=== PATIENT | female | born 1955 | race Caucasian/White ===

== ENCOUNTER 2024-01-12 03:12 | Emergency (ER) | payer BC, SELFPAY ==
[2024-01-12 03:19] VITALS: BP 168/92
--- NOTE | 2024-01-12 03:30 | ED.GENMED ---
History of Present Illness
General
Chief Complaint: Dizziness
Time Seen by Provider: 01/12/24 03:30
Travel History
Have you had any contact with someone who has COVID-19?: No
Do you have any symptoms of coronavirus? Fever > 100 degrees, chills, cough, shortness of breath, sore throat, loss of taste or smell, muscle aches, or headache?: No
History of Present Illness
History of Present Illness:
HPI: Patient states she woke with jittery/palpitations/sensation of heart beating fast at about 1:30 AM. She called brother who brought her here. She has been feeling dizzy that she thinks could have been related to losartan use that was started
about 11 days ago. Has associated dizziness seen by ENT - did not take meclizine.
EXAM:
GENERAL: Well appearing in no distress
HEENT: Moist oral mucosa
CARDIOVASCULAR: No murmurs, normal heart rate, regular rhythm, No chest wall tenderness
PULMONARY: No respiratory distress, breath sounds are clear and equal
ABDOMEN: Soft with no peritoneal signs, no tenderness
NEUROLOGIC: Excellent strength all extremities, no coordination deficits
PSYCHIATRIC: Appropriate mental status, normal insight and judgement, appears somewhat anxious
EXTREMITIES: Nontender, no edema, moves all extremities equally
SKIN: No rash, no lesions
TIME OF INITIAL ENCOUNTER: 3:30 AM
NUMBER AND COMPLEXITY OF PROBLEMS ADDRESSED AT THE ENCOUNTER
� Chronic conditions affecting care: Lymphoma, IBS, anxiety
� Acute Exacerbation and/or Progression of Chronic Illness: Has been having vertiginous problems over the last 7 weeks
� Differential Diagnosis includes: Positional vertigo, electrolyte abnormality, dehydration, anxiety, M�ni�re's
AMOUNT AND/OR COMPLEXITY OF DATA TO BE REVIEWED AND ANALYZED
� I performed an independent evaluation of and my interpretation is:
EKG: Sinus 67, no acute ST abnormality
CT:
X-rays:
Laboratory Studies: CBC, chemistries and free T4 normal
Other:
� Review of other/old records: CAT scan of the brain in 2020 was unremarkable
� Clinical information was obtained by an independent historian: I spoke to the at bedside
� Prescriptions/Medications Considered but not given:
� Further testing considered but not performed:
RISK OF COMPLICATIONS AND/OR MORBIDITY OR MORTALITY OF PATIENT MANAGEMENT
� Social determinants of health affecting care: Lives at home
� Discussion with other providers:
� Escalation of care including admission/observation vs risk of discharge considered: I suspect at least a component of anxiety, he has already been seen by ENT and has CT coming up on Saturday. No clear indication for admission
to the hospital.
Phy Exam
Physical Exam
Physical Exam:
See HPI
Course
Orders/Labs/Results
Orders:
Orders
01/12/24 03:13
EKG [Electrocardiogram (*1)] Urgent
Reason for Study: Chest Pain
EKG- Treatment ONCE
01/12/24 04:12
Basic Metabolic Panel Urgent
Complete Blood Count/With Diff Urgent
Free T4 Urgent
TSH Reflex To Free T4 Urgent
Abnormal Lab Results
01/12/24
04:12
Chloride 108 H mmol/L
(98-107)
BUN 24 H mg/dl
(7-17)
TSH (Reflex) 5.79 H uIU/ml
(0.47-4.68)
01/12/24 04:12
01/12/24 04:12
Vital Signs
Initial and Last Documented VS:
Initial Vital Signs
Temp Pulse Resp BP Pulse Ox
98.9 F 71 14 168/92 98
01/12/24 03:19 01/12/24 03:19 01/12/24 03:19 01/12/24 03:19 01/12/24 03:19
Last Documented Vital Signs
Temp Pulse Resp BP Pulse Ox
98.9 F 63 15 154/75 98
01/12/24 03:19 01/12/24 05:01 01/12/24 05:01 01/12/24 05:01 01/12/24 05:01
*Critical Care Note
Total Time (30-74mins, 75-104mins- exclusive of procedures): Not Applicable
ED Attending Note
-
Portions of this chart may have been created with voice recognition software.� Occasional wrong word or��sound alike� substitutions may have occurred due to the inherent limitations of voice recognition software.
Discharge Plan
Departure
Patient Disposition: Home (Routine Discharge)
Date of Disposition: 01/12/24
Time of Disposition: 05:50
Patient with high blood pressure during this ER visit?: Yes
Discharge Problem:
Dizziness
Prescriptions:
No Action
meclizine [[employer] Relief(mecliz)] 25 MG tablet
25 mg PO TID PRN (Reason: vertigo ) Qty: 12 0RF
losartan 25 mg Tablet
25 mg PO DAILY
sertraline 25 mg Tablet
25 mg PO DAILY
Referrals:
Jethro Hernandez MD [Family Provider] -
Activity Restrictions/Additional Instructions:
Complete blood cell count is normal, chemistry levels are unremarkable including normal kidney function. Your EKG is normal. Follow-up with your ENT and PMD.
Interventions
Interventions:
*Risk Screen - Suicide Last Done: 01/12/24 03:19
*General Assessment Last Done: 01/12/24 03:19
*Neglect/Abuse Screening Last Done: 01/12/24 03:19
ED- Fall Risk Assessment Last Done: 01/12/24 03:59
*ED COVID-19 Vaccine History Last Done: 01/12/24 03:50
*Nursing Disposition Last Done: 01/12/24 06:00
ED- Neurological Assessment Last Done: 01/12/24 03:59
ED- Cardiac Assessment Last Done: 01/12/24 03:59
ED Swallowing Screen Last Done: 01/12/24 03:59
Discharge Date and Time
Discharge Date/Time: 01/12/24 06:01
Print Language: [id number]
[2024-01-12 03:35] VITALS: BMI 24.6
[2024-01-12 04:06] VITALS: BP 161/82
[2024-01-12 04:20] LABS: % Basophils 0.6 % (0-2); % Eosinophils 1.9 % (0-6); % Immature Granulocytes 0.1 % (0-0.5); % Lymphocytes 25.7 % (20.5-51.1); % Monocytes 5.5 % (1.7-9.3); % Neutrophils 66.2 % (42.2-75.2); Absolute Eosinophils 0.1 10^3/uL (0-0.7); Absolute Lymphocytes 1.9 10^3/uL (1.2-3.4); Absolute Monocytes 0.4 10^3/uL (0.1-0.6); Absolute Neutrophils 4.8 10^3/uL (1.4-6.5); Hematocrit 37.6 % (37.0-47.0); Hemoglobin 13.3 g/dL (12.0-16.0); Mean Corp Hgb Conc. 35.4 g/dL (33.0-37.0); Mean Corpuscular Hgb 30.1 pg (27.0-31.0); Mean Corpuscular Volume 85.1 fL (81.0-99.0); Mean Platelet Volume 10.1 fL (7.4-10.4); Nucleated Red Blood Cells % 0 %; Platelet Count 249 10^3/uL (130-400); Red Blood Cell Count 4.42 10^6/uL (4.20-5.40); White Blood Cell Count 7.2 10^3/uL (4.8-10.8)
[2024-01-12 04:55] LABS: Blood Urea Nitrogen 24 mg/dl (7-17); Calcium 9.6 mg/dl (8.4-10.2); Carbon Dioxide 23 mmol/L (22-30); Chloride 108 mmol/L (98-107); Estimated Creatinine Clearance 69 ml/min; Glucose 97 mg/dl (70-99); Potassium 4.8 mmol/L (3.5-5.1); Sodium 137 mmol/L (135-145); eGFR > 60.00
[2024-01-12 05:01] VITALS: BP 154/75
[2024-01-12 05:23] LABS: TSH Reflex To Free T4 5.79 uIU/ml (0.47-4.68)
[2024-01-12 05:51] LABS: Free T4 1.25 ng/dl (0.78-2.19)
== END 2024-01-12 06:01 | disposition home or self-care (01) ==
LOC: EMR 03:12
PROVIDERS: EMERGENCY PHYSICIAN Emergency Medicine; FAMILY PHYSICIAN Family Medicine
DX: R42 Dizziness and giddiness (principal); R00.2 Palpitations; K58.9 Irritable bowel syndrome, unspecified; F41.9 Anxiety disorder, unspecified; R03.0 Elevated blood-pressure reading, without diagnosis of hypertension
CPT/HCPCS: 99284; 80048; 84439; 84443; 85025; 93005